=== PATIENT | female | born 1995 | race Native Hawaiian/Other Pacific Islander ===

== ENCOUNTER 2017-05-31 16:17 | Emergency (ER) | payer MEDICAID ==
[2017-05-31 16:25] VITALS: BP 121/77
[2017-05-31 16:38] LABS: BILIRUBIN,URINE NEGATIVE (NEGATIVE)
[2017-05-31 16:42] LABS: HCG UR QUAL NEGATIVE; UA w/ MICROSCOPIC CHARGE YES
[2017-05-31 16:49] LABS: UR CULTURE IF IND NOT INDICATED
--- NOTE | 2017-05-31 17:16 | ED Physician Documentation ---
History of Present Illness - Stated complaint Stated Complaint: FEM - Chief complaint Chief Complaint: UTI - Additonal information Additional information: hx from pt healthy 21 f denies preg hx UTI pyelo dysuria and some low abd back pain no fever no vag bleed no vag dc Review of Systems Constitutional: denies: Fever GI: reports: Abdominal Pain. denies: Nausea, Vomiting : reports: Dysuria, Frequency. denies: Discharge, Vaginal bleeding, Now EGA Musculoskeletal: reports: Back pain Immunocompromised: denies: Immunocompromised PD PAST MEDICAL HISTORY - Past Medical History Past Medical History: No - Past Surgical History Past Surgical History: No - Present Medications Home Medications: Ambulatory Orders Medication Instructions Recorded Confirmed Phenazopyridine [Pyridium] 100 mg PO Q8H PRN #9 tablet 05/31/17 Sulfamethox/Trimeth 800/160 1 each PO BID #14 tablet 05/31/17 [Bactrim Ds 800/160] - Allergies Allergies/Adverse Reactions: Allergies Allergy/AdvReac Type Severity Reaction Status Date / Time No Known Drug Allergies Allergy Verified 05/31/17 16:25 - Social History Does the pt smoke?: Yes Smoking Status: Current every day smoker Does the pt drink ETOH?: Yes ETOH Use: Beer Does the pt have substance abuse?: No - Immunizations Immunizations are current?: Yes - POLST Patient has POLST: No PD ED PE NORMAL - Vitals Vital signs reviewed: Yes - Cardiac Cardiac: RRR - Respiratory Respiratory: No respiratory distress, Clear bilaterally - Abdomen Abdomen: Soft, Non tender (very mild lower abd TTP s peritoneal sx) - Back Back: No CVA TTP - Derm Derm: Normal color - Neuro Neuro: Alert and oriented X 3 Results - Vitals Vitals: Vital Signs - 24 hr 05/31/17 16:23 Temperature 36.8 C Heart Rate 73 Respiratory 18 Rate Blood Pressure 121/77 O2 Saturation 100 Oxygen O2 Source Room air - Labs Labs: Laboratory Tests 05/31/17 16:27 Urine Color YELLOW Urine Clarity CLEAR Urine pH 6.0 Ur Specific [place] <=1.005 Urine Protein NEGATIVE Urine Glucose (UA) NEGATIVE Urine Ketones NEGATIVE Urine Occult Blood TRACE-LYSE Urine Nitrite NEGATIVE Urine Bilirubin NEGATIVE Urine Urobilinogen 0.2 (NORMAL) Ur Leukocyte Esterase SMALL H Urine RBC 0-5 Urine WBC 6-10 H Ur Squamous Epith Cells MOD Squamous H Urine Bacteria Moderate H Ur Microscopic Review INDICATED Urine Culture Comments NOT INDICATED Urine HCG, Qual NEGATIVE Departure - Departure Disposition: 01 Home, Self Care Clinical Impression: Urinary tract infection Qualifiers: Urinary tract infection type: acute cystitis Hematuria presence: without hematuria Qualified Code(s): N30.00 - Acute cystitis without hematuria Condition: Good Instructions: ED UTI Cystitis Female Prescriptions: Phenazopyridine [Pyridium] 100 mg PO Q8H PRN #9 tablet PRN Reason: painful urination Sulfamethox/Trimeth 800/160 [Bactrim Ds 800/160] 1 each PO BID #14 tablet Comments: Drink plenty of fluids Take the antibiotic for three day - if better you can stop after three days - if the symptoms persist take a full 7 days Follow up with your PMD for a repeat urine test to be sure you are cured. Return if worse (fever, vomiting, kidney pain)
== END 2017-05-31 17:28 | disposition home or self-care (01) ==
LOC: ED 16:17
DX: N30.00 Acute cystitis without hematuria (principal); F17.200 Nicotine dependence, unspecified, uncomplicated
CPT/HCPCS: 81001; 81003; 81025; 87086; 99283